=== PATIENT | male | born 1980 | race Caucasian/White ===

== ENCOUNTER 2017-11-02 11:53 | Emergency (ER) | payer OTHER ==
[~2017-11-02] VITALS: Ht 172.7 cm; Wt 77.1 kg
== END 2017-11-02 17:36 | disposition home or self-care (01) ==
LOC: ER 11:53
DX: S62.633A Displaced fracture of distal phalanx of left middle finger, initial encounter for closed fracture (principal); W22.8XXA Striking against or struck by other objects, initial encounter; Y93.18 Activity, surfing, windsurfing and boogie boarding; Y92.832 Beach as the place of occurrence of the external cause; Y99.8 Other external cause status